=== PATIENT | male | born 1970 | race Caucasian/White ===

== ENCOUNTER 2018-05-20 09:31 | Emergency (ER) | payer SELFPAY ==
[~2018-05-20] VITALS: Wt 70.3 kg
[~2018-05-20 09:31] MED LIST: ANAPROX DS550 MG PO; TRAMADOL HCL50 MG PO
[2018-05-20 09:56] LABS: BASO % 0.2 % (0.0-1.0); EOS # 0.1 10*3/uL (0.0-0.4); EOS % 0.7 % (1.0-4.0); HEMATOCRIT 43.9 % (42.0-52.0); HEMOGLOBIN 14.4 g/dl (14.0-18.0); LYMPH # 1.7 10*3/uL (1.3-4.4); LYMPH % 13.7 % (27.0-41.0); MEAN CELL VOLUME 86.6 fl (80.0-94.0); MEAN CORPUSCULAR HGB 28.4 pg (27.0-31.0); MEAN CORPUSCULAR HGB CONC 32.8 g/dl (33.0-37.0); MEAN PLATELET VOLUME 12.1 fl (9.6-12.3); MONO # 1.1 10*3/uL (0.1-1.0); MONO % 8.7 % (3.0-9.0); NEUT # 9.7 10*3/uL (2.3-7.9); NEUT % 76.4 % (47.0-73.0); PLATELET COUNT AUTOMATED 184 10*3/uL (130-400); RED BLOOD COUNT 5.07 10*6/uL (4.50-5.90); RED CELL DISTRI WIDTH 13.5 % (0-14.5); WHITE BLOOD COUNT 12.7 10*3/uL (4.8-10.8)
[2018-05-20 10:07] LABS: BUN 11 mg/dl (7-24); CHLORIDE 105 mmol/L (98-107); SODIUM 139 mmol/L (136-145)
[2018-05-20] MEDS ORDERED: AUGMENTIN 875875 MG PO (12:08)
[2018-05-20] MEDS ORDERED: TYLENOL325 M1 PO (12:08)
[2018-05-20] MEDS ORDERED: NAPROSYN500 MG PO (12:08)
== END 2018-05-20 12:46 | disposition home or self-care (01) ==
LOC: ED 09:31
PROVIDERS: Emergency Medicine
DX: K11.5 Sialolithiasis (principal)

== ENCOUNTER → 2018-06-23 | Outpatient (CLI) | payer SELFPAY ==
[~2018-06-23] MED LIST changes: +AUGMENTIN 875875 MG PO; +NAPROSYN500 MG PO; +TYLENOL325 M1 PO
== END | disposition home or self-care (01) ==
LOC: RAD 14:31
DX: K11.5 Sialolithiasis (principal)

== ENCOUNTER 2020-02-23 07:15 | Emergency (ER) | payer SELFPAY ==
[~2020-02-23] VITALS: Ht 170.1 cm; Wt 81.6 kg
== END 2020-02-23 09:18 | disposition expired ==
LOC: ED 07:15
DX: I46.9 Cardiac arrest, cause unspecified (principal); Z79.899 Other long term (current) drug therapy